=== PATIENT | female | born 1975 | race Caucasian/White ===

== ENCOUNTER 2022-10-06 00:25 | Emergency (ER) | payer MEDICAID, OTHER ==
[~2022-10-06] VITALS: Ht 162.6 cm; Wt 93.4 kg
[2022-10-06 00:30] VITALS: BP 128/83; PULSE 106; RESP 20; TEMP 97.1; O2SAT 95
[2022-10-06] MEDS ORDERED: KETOROLAC 60 MG/2 ML VIAL IM ONE (02:05)
[2022-10-06 04:04] VITALS: BP 128/83; PULSE 106; RESP 20; TEMP 97.1; O2SAT 95
== END 2022-10-06 03:44 | disposition left against medical advice (07) ==
LOC: MED 00:25
DX: S82.142A Displaced bicondylar fracture of left tibia, initial encounter for closed fracture (principal); F32.9 Major depressive disorder, single episode, unspecified; V09.9XXA Pedestrian injured in unspecified transport accident, initial encounter; Y93.89 Activity, other specified; Y92.89 Other specified places as the place of occurrence of the external cause; Y99.8 Other external cause status
CPT/HCPCS: 73562; 73702; 96372; 99284; J1885

== ENCOUNTER 2022-10-09 18:35 | Emergency (ER) | payer MEDICAID ==
[~2022-10-09] VITALS: Ht 165.1 cm; Wt 72.6 kg
[2022-10-09 18:44] VITALS: BP 123/95; PULSE 109; RESP 18; TEMP 98; O2SAT 99
[2022-10-09] MEDS ORDERED: MORPHINE SULFATE 4 MG/ML SYR IVP ONE ×2 (21:25→22:10)
[2022-10-09 21:45] VITALS: BP 118/85; PULSE 95; RESP 20; O2SAT 99
[2022-10-09] MEDS ORDERED: MORPHINE SULFATE 4 MG/ML SYR IM ONE (22:15)
[2022-10-09] MEDS ORDERED: ACET-8905 PO (22:22)
== END 2022-10-09 22:46 | disposition home or self-care (01) ==
LOC: MED 18:35
DX: S82.142A Displaced bicondylar fracture of left tibia, initial encounter for closed fracture (principal); Z79.899 Other long term (current) drug therapy; X58.XXXA Exposure to other specified factors, initial encounter; Y93.89 Activity, other specified; Y92.89 Other specified places as the place of occurrence of the external cause; Y99.8 Other external cause status
CPT/HCPCS: 29505; 96372; 99283; J2270

== ENCOUNTER 2022-10-10 21:02 | Emergency (ER) | payer MEDICAID ==
[~2022-10-10] VITALS: Ht 162.6 cm; Wt 93.4 kg
[~2022-10-10 21:02] MED LIST: ACET-8905 PO
[2022-10-10 22:12] VITALS: BP 148/72; PULSE 100; RESP 20; TEMP 97.2; O2SAT 99
[2022-10-10 22:15] VITALS: BP 148/72; PULSE 100; RESP 20; TEMP 97.2
[2022-10-11 02:50] VITALS: O2SAT 99
[2022-10-11] MEDS ORDERED: MORPHINE SULFATE 4 MG/ML SYR IM ONE (03:15)
[2022-10-11] MEDS ORDERED: ACET-5629 PO (04:46)
[2022-10-11] MEDS ORDERED: NAPR-1704 PO (04:46)
[2022-10-11] MEDS ORDERED: HYDROcodone/APAP 5/325 MG 1 TAB TAB PO ONE (04:55)
== END 2022-10-11 05:00 | disposition home or self-care (01) ==
LOC: MED 21:02
DX: S82.142A Displaced bicondylar fracture of left tibia, initial encounter for closed fracture (principal); Z79.899 Other long term (current) drug therapy; V09.9XXA Pedestrian injured in unspecified transport accident, initial encounter; Y93.89 Activity, other specified; Y92.89 Other specified places as the place of occurrence of the external cause; Y99.8 Other external cause status
CPT/HCPCS: 96372; 99283; J2270

== ENCOUNTER 2022-10-16 01:30 | Emergency (ER) | payer MEDICAID ==
[~2022-10-16] VITALS: Ht 162.6 cm; Wt 90.7 kg
[~2022-10-16 01:30] MED LIST changes: +ACET-5629 PO; +NAPR-1704 PO
[2022-10-16 01:39] VITALS: BP 140/89; PULSE 101; RESP 20; TEMP 97.9; O2SAT 99
[2022-10-16] MEDS ORDERED: ONDANSETRON 4 MG/2 ML VIAL IVP ONE (02:10)
[2022-10-16] MEDS ORDERED: MORPHINE SULFATE 4 MG/ML SYR IVP ONE (02:10)
[2022-10-16] MEDS ORDERED: KETOROLAC 30 MG/ML VIAL IVP ONE (02:10)
[2022-10-16 02:51] LABS: BASOPHILS % (AUTO) 0.4 % (0.0-2.0); EOSINOPHILS # (AUTO) 0.1 K/uL (0-0.4); EOSINOPHILS % (AUTO) 0.9 % (0.0-4.0); HEMATOCRIT 34.1 % (36-48); HEMOGLOBIN 11.4 g/dL (12.0-16.0); LYMPHOCYTES % (AUTO) 12.5 % (20.5-51.1); MEAN CORPUSCULAR HEMOGLOBIN 28 pg (27-31); MEAN CORPUSCULAR HGB CONC 34 g/dL (33-37); MONOCYTES # (AUTO) 0.8 K/uL (0.8-1.0); MONOCYTES % (AUTO) 9.8 % (1.7-9.3); NEUTROPHILS # (AUTO) 6.2 K/uL (1.8-7.7); NEUTROPHILS % (AUTO) 76.4 % (42.2-75.2); PLATELET COUNT (AUTO) 333 K/uL (140-450); RED BLOOD CELL COUNT(AUTO) 4.06 MIL/uL (4.20-5.40); WHITE BLOOD COUNT (AUTO) 8.1 K/uL (4.8-10.8)
[2022-10-16 03:09] LABS: ALBUMIN 3.4 g/dL (3.4-5.0); ANION GAP 11.2 (8-16); CARBON DIOXIDE 27.6 mmol/L (21-32); POTASSIUM 3.8 mmol/L (3.5-5.1); TOTAL BILIRUBIN 0.6 mg/dL (0.0-1.0); TOTAL PROTEIN, SERUM 7.4 g/dL (6.4-8.2)
[2022-10-16 06:59] LABS: APPEARANCE,URINE CLEAR (CLEAR); BILIRUBIN,URINE NEGATIVE (NEGATIVE); BLOOD, URINE 3+ (NEGATIVE); COLOR,URINE YELLOW (YELLOW); LEUKOCYTE ESTERASE ,URINE 2+ (NEGATIVE); NITRITE, URINE NEGATIVE (NEGATIVE); PH,URINE 6.5 (5.0-9.0); PROTEIN,URINE NEGATIVE (NEGATIVE); UGLUCOSE NEGATIVE (NEGATIVE)
[2022-10-16 07:10] LABS: AMPHETAMINE, URINE POSITIVE ng/ml (NEG <=1000); BARBITURATE, URINE NEGATIVE ng/ml (NEG <=200); BENZODIAZEPINE, URINE NEGATIVE ng/mL (NEG <=200); CANNABINOID, URINE NEGATIVE ng/mL (NEG <=50); COCAINE, URINE NEGATIVE ng/mL (NEG <=300); OPIATE, URINE POSITIVE ng/mL (NEG <=2000); PHENCYCLIDINE SCREEN,URINE NEGATIVE ng/mL (NEG <=25)
[2022-10-16 07:17] LABS: BACTERIA,URINE 3+ /HPF (None Seen); RBC,URINE 11-20 (MOD) /HPF (0-5); WBC,URINE 80-100 /HPF (0-5)
[2022-10-16 07:18] LABS: SQUAMOUS EPITHELIAL CELL,UR 0-3 (FEW) /LPF (0-3 (FEW))
[2022-10-16 07:42] VITALS: BP 126/76; PULSE 91; RESP 18; O2SAT 96
[2022-10-16] MEDS ORDERED: NAPR-54 PO (07:42)
[2022-10-16] MEDS ORDERED: CEPH-588 PO (07:42)
== END 2022-10-16 08:55 | disposition home or self-care (01) ==
LOC: MED 01:30
DX: N39.0 Urinary tract infection, site not specified (principal); Z86.19 Personal history of other infectious and parasitic diseases; Z79.899 Other long term (current) drug therapy
CPT/HCPCS: 36415; 80053; 80305; 81001; 81025; 85025; 87086; 96374; 96375; 99284; J1885; J2270; J2405

== ENCOUNTER 2023-05-28 17:14 | Emergency (ER) | payer MEDICAID ==
[~2023-05-28] VITALS: Ht 162.6 cm; Wt 90.7 kg
[~2023-05-28 17:14] MED LIST changes: +CEPH-588 PO; +NAPR-54 PO
[2023-05-28 17:34] VITALS: BP 131/81; PULSE 100; RESP 18; TEMP 97.8; O2SAT 100
[2023-05-28 20:50] VITALS: O2SAT 98
[2023-05-28] MEDS: MORPHINE SULFATE 4 MG/ML SYR IVP ONE (21:32)
[2023-05-28 21:42] LABS: HEMATOCRIT 39.6 % (36-48); HEMOGLOBIN 13.4 g/dL (12.0-16.0); MEAN CORPUSCULAR HEMOGLOBIN 29 pg (27-31); MEAN CORPUSCULAR HGB CONC 34 g/dL (33-37); MEAN CORPUSCULAR VOLUME 84.8 fL (80-94); PLATELET COUNT (AUTO) 282 K/uL (140-450); RED BLOOD CELL COUNT(AUTO) 4.67 MIL/uL (4.20-5.40); RED CELL DISTRIBUTION WIDTH 14.1 % (11.6-13.7); WHITE BLOOD COUNT (AUTO) 15.2 K/uL (4.8-10.8)
[2023-05-28 21:51] LABS: CALCIUM 8.8 mg/dL (8.5-10.1); CARBON DIOXIDE 24.8 mmol/L (21-32); CREATININE 1.1 mg/dL (0.6-1.3); POTASSIUM 3.8 mmol/L (3.5-5.1)
[2023-05-28 21:55] LABS: ALBUMIN 3.4 g/dL (3.4-5.0); BILIRUBIN,DIRECT 0.1 mg/dL (0.0-0.3); TOTAL BILIRUBIN 0.5 mg/dL (0.0-1.0); TOTAL PROTEIN, SERUM 7.2 g/dL (6.4-8.2)
[2023-05-28 22:08] LABS: LYMPHOCYTES % (MANUAL) 7 % (20-46); MONOCYTES % (MANUAL) 3 % (5-12); PLATELET ESTIMATE ADEQUATE
[2023-05-28] MEDS: KETOROLAC 30 MG/ML VIAL IVP ONE (22:15)
[2023-05-28 22:16] LABS: BILIRUBIN,URINE 1+ (NEGATIVE); BLOOD, URINE TRACE-I (NEGATIVE); LEUKOCYTE ESTERASE ,URINE TRACE (NEGATIVE); NITRITE, URINE POSITIVE (NEGATIVE); PH,URINE 5.5 (5.0-9.0); PROTEIN,URINE 1+ (NEGATIVE); UGLUCOSE 1+ (NEGATIVE)
[2023-05-28 22:19] LABS: APPEARANCE,URINE SLIGHTLY CLOUDY (CLEAR); COLOR,URINE ORANGE (YELLOW)
[2023-05-28 22:24] LABS: ICTOTEST POSITIVE (NEGATIVE); RBC,URINE 0-5 /HPF (0-5)
[2023-05-28 22:25] LABS: BACTERIA,URINE 1+ /HPF (None Seen); MUCUS,URINE None Seen /LPF (None Seen); SQUAMOUS EPITHELIAL CELL,UR 0-3 (FEW) /LPF (0-3 (FEW)); WBC,URINE 0-5 /HPF (0-5)
[2023-05-28] MEDS: ACETAMINOPHEN EXTRA STRENGTH 500 MG TAB PO ONE (22:39)
[2023-05-28 22:57] VITALS: O2SAT 98
[2023-05-29 01:20] VITALS: O2SAT 98
[2023-05-29] MEDS ORDERED: IBUP-2213 PO (01:28)
[2023-05-29] MEDS ORDERED: CIPR500T4 PO (01:28)
[2023-05-29] MEDS ORDERED: cefTRIAXone 1,000 MG VIAL ONE (01:39)
[2023-05-29] MEDS ORDERED: ACETAMINOPHEN EXTRA STRENGTH 500 MG TAB ONE (02:47)
[2023-05-29] MEDS: ACETAMINOPHEN EXTRA STRENGTH 500 MG TAB PO ONE (02:53)
== END 2023-05-29 02:51 | disposition home or self-care (01) ==
LOC: MED 17:14
DX: N23 Unspecified renal colic (principal); N39.0 Urinary tract infection, site not specified; Z79.899 Other long term (current) drug therapy
CPT/HCPCS: 36415; 74176; 80048; 80076; 81001; 81025; 83690; 85025; 96365; 96375; 99285; J0696; J1885; J2270